=== PATIENT | female | born 1945 | race Caucasian/White ===

== ENCOUNTER 2021-01-20 09:36 | Emergency (ER) | payer MEDICARE, SELFPAY ==
[2021-01-20] VITALS (12 sets, daily range): BP systolic 132–152; BP diastolic 73–86; PULSE 80–111; RESP 12–22; TEMP 36.7; O2SAT 99–100
--- NOTE | ~2021-01-20 | XR_ITS ---
EXAMINATION: XR chest 2V DATE: 01/20/2021 10:41 INDICATION: Shortness of breath, palpitations and generalized weakness. TECHNIQUE: PA and lateral views of the chest were obtained. COMPARISON: Chest radiograph dated 10/27/[address] dated 01/26/2019 FINDINGS: The lungs are clear with no focal airspace opacities, pulmonary edema, pleural effusion or pneumothor ax. The cardiomediastinal silhouette is normal. Mild thoracic dextroscoliosis . Mild thoracic and mod erate lower cervical and upper lumbar spondylosis. IMPRESSION: 1. No acute cardiopulmonary disease. Reviewed, dictated and finalized at location B.
--- NOTE | 2021-01-20 09:45 | ECG_ITS ---
Measurements Intervals [place] Rate: 112 P: MA: 0 QRS: 8 QRSD: 74 T: 57 QT: 307 QTc: 420 Interpretive Statements SINUS TACHYCARDIA FREQUENT ATRIAL PREMATURE COMPLEXES LOW QRS VOLTAGE IN DIFFUSE LEADS CANNOT RULE OUT SEPTAL INFARCT, AGE INDETERMINATE ABNORMAL ECG Electronically Signed On 01-20-2021 11:09:50 CDT by Simba Damico D.O.
--- NOTE | 2021-01-20 09:46 | PC.NURSE ---
radial pulse strong, irregular
[2021-01-20 10:00] LABS: Basophils Absolute Auto 0.1 K/mm3 (0.0-0.1); Basophils Percent Auto 0.6 % (0.2-1.2); Eosinophils Absolute Auto 0.1 K/mm3 (0-0.3); Eosinophils Percent Auto 1.2 % (0-4.4); Hematocrit 42.4 % (37.0-47.0); Immature Granulocyte Absolute 0.03 K/mm3 (0.00-0.031); Immature Granulocyte Percent A 0.3 % (0-0.5); Lymphocytes Absolute Auto 1.39 K/mm3 (0.9-3.2); Lymphocytes Percent Auto 16.2 % (18.3-44.2); Mean Corpuscular Hemoglobin 31.6 pg (26-34); Mean Corpuscular Volume 95.7 fl (80-100); Mean Platelet Volume 9.9 fl (7.4-10.4); Monocytes Absolute Auto 0.6 K/mm3 (0.1-0.6); Neutrophils Absolute Auto 6.4 K/mm3 (1.3-6.7); Neutrophils Percent Auto 74.7 % (45.5-73.1); Platelet Count Result 285 k/mm3 (150-375); Red Blood Count 4.43 M/mm3 (4.2-5.4); Red Cell Distribution Width 12.9 % (11.5-14.5); White Blood Count 8.6 K/mm3 (4.5-10.0)
[2021-01-20 10:08] LABS: INR 0.9; Prothrombin Time 12.5 Seconds (11.1-14.7)
[2021-01-20 10:12] LABS: Potassium 4.1 mmol/L (3.4-5.0)
[2021-01-20 10:14] LABS: Anion Gap 10 mmol/L (8-16); Blood Urea Nitrogen 16 mg/dL (7-17); Calcium 9.2 mg/dL (8.4-10.2); Carbon Dioxide 26 mmol/L (22-30); Chloride 102 mmol/L (98-107); Estimated CRCL calculation 43 ml/min; Estimated Glomerular Filt Rate > 60; Glucose 154 mg/dL (65-105); Sodium 138 mmol/L (137-145)
[2021-01-20 10:24] LABS: Troponin I < 0.012 ng/mL (0.000-0.034)
[2021-01-20 11:05] LABS: Add Urine Microscopic? YES; Appearance Urine Clear (Clear); Bacteria Urine Trace /hpf; Bilirubin Urine Negative (Negative); Blood Urine 1+ (Negative); Color Urine Yellow (Yellow); Glucose Urine UA Negative (Negative); Ketones Urine Negative (Negative); Leukocyte Esterase Ur Trace LEU/UL (Negative); Mucus Urine Rare /lpf; Nitrate Urine Negative (Negative); Protein Urine Negative (Negative); RBC Urine 0-2 /hpf (0-2); Renal Epithelial Cells Urine Rare /hpf (None Seen); Specific Grav Ur 1.008 (1.001-1.035); Squamous Epithelial Cell Urine Few /hpf (Few); Urobilinogen Urine Negative mg/dL (<2.0); WBC Urine 0-3 /hpf
[2021-01-20] MEDS: SODIUM CHLORIDE 0.9% IV 1,000 ML 999 ML IV CONT (11:13)
--- NOTE | 2021-01-20 12:48 | ED.ARRPALP ---
HPI - Arrhythmia/Palpitations General Chief Complaint: Arrhythmia/Palpitations Stated Complaint: fast heartbeat Time Seen by Provider: 01/20/21 11:00 History of Present Illness HPI narrative: Patient is a 75-year-old female who presents ER with feelings of her heart racing. Patient continues to feel like her heart is going fast. No history of A. fib or SVT or atrial flutter. She reports she was seen by her PCP earlier in the week for concerns for UTI. She has been taking ciprofloxacin. She also takes lisinopril for hypertension. Denies fevers or chills or sweats. No abdominal issues. She is chest pain-free. Patient reports she urinates quite frequently but has not been having burning urination. She also reports she has not been eating or drinking much. Related Data Home Medications Medication Instructions Recorded Confirmed ciprofloxacin HCl 500 mg PO BID 01/20/21 Allergies Allergy/AdvReac Type Severity Reaction Status Date / Time No Known Allergies Allergy Verified 01/20/21 11:24 Review of Systems Review of Systems: All systems reviewed & are unremarkable except as noted in HPI and below Constitutional: Constitutional: Denies chills, Denies fever(s) and Denies weakness ENT: Denies nasal congestion and Denies sore throat Cardiovascular: Cardiovascular: Denies chest pain, Reports rapid heart rate and Denies radiating jaw, neck or arm pain Respiratory: Respiratory: Denies cough, Denies dyspnea and Denies wheezing Gastrointestinal: Gastrointestinal: Denies abdominal pain, Denies diarrhea, Denies nausea and Denies vomiting Genitourinary: Genitourinary: Reports nocturia, Denies dysuria and Denies flank pain [facility] Past Medical History Medical History (Updated 01/20/21 @ 14:04 by Derrick Holloway MD) Hypertension Macular degeneration Personal history of nicotine dependence Family History Family History Father Hypertension Family history of malignant neoplasm of urinary bladder Mother Hypertension Family history of diabetes mellitus in first degree relative Family history of malignant neoplasm of uterus Grandparent Family history of heart disease in male family member before age 55 Other Family history of malignant neoplasm of breast in first degree relative Family history of malignant neoplasm of male breast Social History Social History Smoking status: Current every day smoker Tobacco type: cigarettes Alcohol intake: current Exam Narrative: Exam Narrative: GENERAL: Well-appearing, well-nourished, and in no acute distress. HEAD: Normocephalic, atraumatic. ENT: Mucous membranes moist. CHEST: Clear to auscultation. No respiratory distress. HEART: Tachycardic and regular. Normal peripheral pulses. ABDOMEN: Soft, nontender, nondistended. EXTREMITIES: Normal range of motion. No edema. SKIN: Warm, dry, no rash. NEURO: Alert and oriented x3. PSYCH: Normal mood and affect. Course Course Emergency Course: Informed of results. No evidence of arrhythmia. Discharge home. Vital Signs Vital signs: Vital Signs Temperature 98.0 F 01/20/21 09:38 Pulse Rate 108 H 01/20/21 09:38 Respiratory Rate 20 01/20/21 09:38 Blood Pressure 152/80 H 01/20/21 09:38 Pulse Oximetry 100 01/20/21 09:38 Temperature 98.0 F 01/20/21 10:53 Pulse Rate 87 01/20/21 12:01 Respiratory Rate 16 01/20/21 12:01 Blood Pressure 133/74 01/20/21 12:01 Pulse Oximetry 100 01/20/21 12:01 MDM - Arrhythmia/Palpitations Lab Data Result diagrams: 01/20/21 09:51 01/20/21 09:51 Labs: Lab Results 01/20/21 01/20/21 01/20/21 Range/Units 09:51 09:51 09:51 WBC 8.6 (4.5-10.0) K/mm3 RBC 4.43 (4.2-5.4) M/mm3 Hgb 14.0 (12.0-15.0) g/dL Hct 42.4 (37.0-47.0) % MCV 95.7 (80-100) fl MCH 31.6 (26-34) pg MCHC 33.0
[2021-01-20 12:59] LABS: Troponin I < 0.012 ng/mL (0.000-0.034)
== END 2021-01-20 14:20 | disposition home or self-care (01) ==
PROVIDERS: Emergency Provider Emergency Medicine; PCP Physician Assistant
DX: R00.2 Palpitations (principal); F17.210 Nicotine dependence, cigarettes, uncomplicated; I10 Essential (primary) hypertension; H35.30 Unspecified macular degeneration; R06.02 Shortness of breath; R94.31 Abnormal electrocardiogram [ECG] [EKG]
CPT/HCPCS: 36415; 71046; 80048; 81001; 84484; 85025; 85610; 85730; 93005; 96360; 99284; J7030

== ENCOUNTER 2023-05-31 11:43 | Emergency (ER) | payer MEDICARE, SELFPAY ==
[2023-05-31] VITALS (21 sets, daily range): BP systolic 119–139; BP diastolic 72–88; PULSE 70–92; RESP 13–30; TEMP 36.5; O2SAT 97–100
--- NOTE | ~2023-05-31 | XR_ITS ---
EXAMINATION: XR chest 2V DATE: 05/31/2023 13:12 INDICATION: Palpitations. TECHNIQUE: Frontal and lateral views of the chest were obtained. COMPARISON: Chest 2 views 01/20/2021 FINDINGS: There is mild scarring at the lung apices. No pleural effusion or pneumothorax. The heart s ize is normal. IMPRESSION: 1. Stable mild scarring at the lung apices. Reviewed, dictated and finalized at location A.
--- NOTE | ~2023-05-31 | CT_ITS ---
EXAMINATION: CT brain wo con DATE: 05/31/2023 15:57 INDICATION: near syncope, vision changes . TECHNIQUE: Computed tomography (CT) of the head was performed without intravenous contrast. The mA wa s adjusted according to patient size. Iterative reconstruction technique was employed. The dose-lengt h product was 605.33 mGy-cm. COMPARISON: None. FINDINGS: No acute intracranial hemorrhage or extra-axial fluid collection. No hydrocephalus, mass, or herniation. No acute ischemic infarct. Unremarkable dural venous sinus attenuation. No acute osseous abnormality. The aerated spaces are clear. Mild atrophy and chronic white matter change. Atherosclerotic intracranial calcification. IMPRESSION: No acute intracranial process. Reviewed, dictated and finalized at location K.
--- NOTE | 2023-05-31 11:46 | ECG_ITS ---
Measurements Intervals [place] Rate: 91 P: 80 PA: 143 QRS: 32 QRSD: 78 T: 64 QT: 346 QTc: 426 Interpretive Statements SINUS RHYTHM RIGHT ATRIAL ENLARGEMENT [0.25mV P WAVE] INDETERMINATE AXIS LOW QRS VOLTAGE IN PRECORDIAL LEADS [QRS DEFLECTION < 1.0 mV IN CHEST LEADS] CANNOT RULE OUT sEPTAL MYOCARDIAL INFARCTION , PROBABLY OLD [ COMPARED TO ECG 01/20/2021 09:42:01 THERE IS NO SIGNIFICANT CHANGE Electronically Signed On 05-31-2023 17:03:59 CDT by [place] Mathias M.D.
[2023-05-31 12:06] LABS: Basophils Absolute Auto 0.1 K/mm3 (0.0-0.1); Basophils Percent Auto 0.6 % (0.2-1.2); Eosinophils Percent Auto 0.4 % (0-4.4); Hematocrit 43.2 % (37.0-47.0); Hemoglobin 14.3 g/dL (12.0-15.0); Immature Granulocyte Absolute 0.03 K/mm3 (0.00-0.031); Immature Granulocyte Percent A 0.3 % (0-0.5); Lymphocytes Percent Auto 14.5 % (18.3-44.2); Mean Corpuscular HGB Conc 33.1 g/dl (32-36); Mean Corpuscular Hemoglobin 31.9 pg (26-34); Mean Corpuscular Volume 96.4 fl (80-100); Mean Platelet Volume 10.2 fl (7.4-10.4); Monocytes Absolute Auto 0.9 K/mm3 (0.1-0.6); Monocytes Percent Auto 8.5 % (2.6-8.5); Neutrophils Absolute Auto 7.9 K/mm3 (1.3-6.7); Neutrophils Percent Auto 75.7 % (45.5-73.1); Platelet Count Result 270 k/mm3 (150-375); Red Blood Count 4.48 M/mm3 (4.2-5.4); White Blood Count 10.4 K/mm3 (4.5-10.0)
[2023-05-31 12:17] LABS: INR 0.9; Prothrombin Time 12.5 Seconds (11.1-14.7)
[2023-05-31 12:18] LABS: Partial Thromboplastin Time 27.6 SECONDS (22.3-36.8)
[2023-05-31 12:19] LABS: Alanine Aminotransferase 19 U/L (6-35); Albumin Level 4.3 g/dL (3.5-5.1); Alkaline Phosphatase 66 U/L (38-126); Anion Gap 4 mmol/L (8-16); Aspartate Amino Transferase 22 U/L (14-36); Bilirubin,Total 0.4 mg/dL (0.2-1.3); Blood Urea Nitrogen 11 mg/dL (7-17); Calcium 10.4 mg/dL (8.4-10.2); Carbon Dioxide 27 mmol/L (22-30); Chloride 102 mmol/L (98-107); Estimated CRCL calculation 40 ml/min; Estimated Glomerular Filt Rate > 60; Glucose 91 mg/dL (65-110); Lipase 73 U/L (23-300); Potassium 4.2 mmol/L (3.4-5.0); Sodium 133 mmol/L (137-145)
[2023-05-31 12:49] LABS: Troponin I < 0.012 ng/mL (0.000-0.034)
--- NOTE | 2023-05-31 13:48 | PC.NURSE ---
pt reports that she thinks she as dx with afib in the past however it went away, Cardiology states i wouldn't call this afib .
[2023-05-31] MEDS: ASPIRIN 81 MG CHEWABLE TABLET 324 MG PO (13:57)
--- NOTE | 2023-05-31 13:58 | ED.GENADULT ---
HPI - General Adult General Chief complaint: Arrhythmia/Palpitations Stated complaint: palp/cp/sob Time Seen by Provider: 05/31/23 13:44 Source: patient Mode of arrival: ambulatory Limitations: no limitations History of Present Illness HPI narrative: This is a 77-year-old female who presents to the ED with multiple complaints. She seems to indicate that her chief complaint is palpitations as this has been going on intermittently for the past couple of weeks. She has other complaints shortness of breath, hair loss, fatigue, lightheadedness, feeling off balance, diaphoresis that have all been going on for the past several months to a year. She states as I interview her that she is not having any more palpitations. She denies any chest pain. Denies shortness of breath currently. At this moment she is largely symptom-free. Denies fevers, chills, leg swelling, abdominal pain, nausea, vomiting. Related Data Home Medications Medication Instructions Recorded Confirmed ascorbate calcium (vitamin C) 500 500 mg PO DAILY 06/29/22 06/30/22 mg tablet calcium carbonate 600 mg-vitamin cap PO DAILY 06/29/22 06/30/22 D3 12.5 mcg (500 unit) capsule (Calcium 600 with Vitamin D3) multivitamin 1 tablet PO DAILY 06/29/22 06/30/22 Allergies Allergy/AdvReac Type Severity Reaction Status Date / Time escitalopram AdvReac Mild Mouth sores Verified 06/29/22 13:32 Review of Systems Review of Systems: All systems as dictated in HPI [facility] Past Medical History Medical History (Updated 05/31/23 @ 17:20 by Diallo Rasmussen PA-C) Hypertension Macular degeneration Personal history of nicotine dependence Family History Family History Father Hypertension Family history of malignant neoplasm of urinary bladder Mother Hypertension Family history of diabetes mellitus in first degree relative Family history of malignant neoplasm of uterus Grandparent Family history of heart disease in male family member before age 55 Other Family history of malignant neoplasm of breast in first degree relative Family history of malignant neoplasm of male breast Social History Social History Smoking packs per day: 1 Smoking cigarettes per day: 20.0 Years smoked: 55 Smoking pack-years: 55.00 Smoking status: Current every day smoker Tobacco type: cigarettes Alcohol intake: current Exam Narrative: GENERAL: Well-appearing, well-nourished, and in no acute distress. HEAD: Normocephalic, atraumatic. EYES: PERRLA and EOMI. ENT: Nares clear, no rhinorrhea or epistaxis. Mucous membranes moist. Oropharynx without tonsillar hypertrophy exudate or other lesions. NECK: Supple. No adenopathy or masses. CHEST: No respiratory distress. Clear to auscultation. No wheezes rales or rhonchi. HEART: Regular rate and rhythm. No murmur heard. Normal peripheral pulses. ABDOMEN: Soft, nontender, nondistended, normal active bowel sounds. MSK: Normal range of motion. No edema. SKIN: Warm, dry, no rash. NEURO: Alert and oriented x3. No focal deficits. PSYCH: Normal mood and affect. Course Vital Signs Vital signs: Vital Signs Temperature 97.7 F 05/31/23 12:05 Pulse Rate 91 05/31/23 12:05 Respiratory Rate 16 05/31/23 12:05 Blood Pressure 128/72 05/31/23 12:05 Pulse Oximetry 100 05/31/23 12:05 Oxygen Delivery Room Air 05/31/23 12:05 Temperature 97.7 F 05/31/23 12:05 Pulse Rate 84 05/31/23 16:46 Respiratory Rate 22 H 05/31/23 16:46 Blood Pressure 128/78 05/31/23 16:16 Pulse Oximetry 98 05/31/23 16:46 Oxygen Delivery Room Air 05/31/23 12:05 Medical Decision Making [facility] Narrative Medical decision making narrative: This is a 77-year-old female who presents to the ED with chief complaint of palpitations among multiple other complaints. Vitals are normal. EKG shows a sinus rh
[2023-05-31 15:12] LABS: Troponin I < 0.012 ng/mL (0.000-0.034)
--- NOTE | 2023-05-31 15:31 | ECG_ITS ---
Measurements Intervals [place] Rate: 79 P: 67 NV: 154 QRS: -11 QRSD: 80 T: 41 QT: 373 QTc: 428 Interpretive Statements SINUS RHYTHM LEFT ATRIAL ENLARGEMENT [-0.15mV P WAVE IN V1/V2] LOW QRS VOLTAGE IN PRECORDIAL LEADS [QRS DEFLECTION < 1.0 mV IN CHEST LEADS] COMPARED TO ECG 05/31/2023 11:51:33 NO SIGNIFICANT CHANGES Electronically Signed On 06-01-2023 14:30:57 CDT by López Le M.D.
--- NOTE | 2023-05-31 16:10 | PC.NURSE ---
Called to lab, spoke with Jean Claude, made aware of TSH. will add on.
--- NOTE | 2023-05-31 16:47 | PC.NURSE ---
Ambulated pt with walking O2 machine. Pt HR 90-103, oxygen at 96, pt denies SOB, CP, palpitations, lightheadedness during ambulation.
[2023-05-31 16:51] LABS: Thyroid Stimulating Hormone 0.109 uIU/mL (0.465-4.680)
== END 2023-05-31 17:35 | disposition home or self-care (01) ==
PROVIDERS: Emergency Medicine; Emergency Provider Physician Assistant; PCP Physician Assistant
DX: R94.6 Abnormal results of thyroid function studies (principal); R06.02 Shortness of breath; I10 Essential (primary) hypertension; H35.30 Unspecified macular degeneration; F17.210 Nicotine dependence, cigarettes, uncomplicated; R94.31 Abnormal electrocardiogram [ECG] [EKG]
CPT/HCPCS: 36415; 70450; 71046; 80053; 83690; 84443; 84484; 85025; 85610; 85730; 93005; 99284; A9270

== ENCOUNTER 2024-10-28 10:19 | Outpatient (CLI) | payer MEDICARE, SELFPAY ==
--- NOTE | ~2024-10-28 | MR_ITS ---
MRI of the brain Clinical History: Gait abnormality Technique: Axial and sagittal T1-weighted images were acquired. These were followed by axial T2-weigh masha, diffusion weighted, gradient, and FLAIR images. Thin cut axial and coronal T1-weighted and T2-we ighted images were acquired through the internal auditory canals. Findings: There is no acute infarct, intracranial hemorrhage, or mass lesion. There are mild to moder ate chronic white matter changes in the periventricular white matter bilaterally, most compatible wit h chronic microvascular ischemic change. Ventricles and subarachnoid spaces are unremarkable. Orbits are unremarkable. Paranasal sinuses and m astoid air cells are essentially clear. Major intracranial flow voids appear intact. Sagittal midline structures are intact. No abnormal mass lesion seen at the internal auditory canals or CP angle regions. IMPRESSION: Mild to moderate chronic microvascular ischemic change, otherwise unremarkable exam. Reviewed, dictated and finalized at location . [employer]
== END 2024-10-28 10:20 | disposition home or self-care (01) ==
LOC: MICIMG 10:21
PROVIDERS: PCP Physician Assistant; Visit Provider Nurse Practitioner
DX: I67.82 Cerebral ischemia (principal)
CPT/HCPCS: 70551

== ENCOUNTER 2025-03-22 10:12 | Outpatient (CLI) | payer MEDICARE, SELFPAY ==
--- NOTE | 2025-03-22 11:00 | NEURO_ITS ---
EMG and nerve conductions studies on lower limbs History: The patient is 79-year-old with history of imbalance and tendency to fall. She is being evaluated for neuromuscular disorders affecting lower limbs. On a brief examination no focal muscle wasting or fasciculations or muscle weakness were noted in the lower limbs. Results of the study are as follows. Summary of findings 1. Left and right tibial and peroneal motor distal latencies amplitude and conduction velocity within normal limits. 2. Left and right sural and right medial plantar sensory distal latencies amplitudes were within acceptable normal limits in 3. Bilateral H-reflex latencies and amplitudes were within acceptable normal limits. 4. EMG examination performed were various muscles in L3-S1 distribution and related paraspinal muscles were examined. No denervation changes were seen. Motor unit amplitude, duration and recruitment pattern appeared within acceptable normal limits. Impression: EMG and nerve conduction study of both lower limbs are considered within acceptable normal limits. Danita Marroquin MD, FAAN, FAANEM Neurology & electrodiagnostic Medicine Nerve Conduction Studies Motor Nerve Results ? Latency Amplitude F-Lat Segment Distance CV Comment Site (ms) (mV) (ms) (cm) (m/s) Left Peroneal (EDB) Motor Ankle 3.4 4.6 Bel Fib Head 9.0 4.0 Bel Fib Head-Ankle 260 46 Pop Fossa 10.2 4.0 Pop Fossa-Bel Fib Head 70 58 Right Peroneal (EDB) Motor Ankle 4.1 3.7 Bel Fib Head 9.0 3.3 Bel Fib Head-Ankle 250 51 Pop Fossa 10.5 3.2 Pop Fossa-Bel Fib Head 80 53 Left Tibial (AHB) Motor Ankle 3.6 11.8 Knee 11.2 10.4 Knee-Ankle 370 49 Right Tibial (AHB) Motor Ankle 4.6 11.0 Knee 12.3 10.5 Knee-Ankle 370 48 Sensory Nerve Results ? Latency (Peak) Amplitude (P-P) Segment Distance CV Comment Site (ms) (?V) (cm) (m/s) Right Medial Plantar (Ortho) Sensory Great Toe-Med Mall 2.4 29 Great Toe-Med Mall 100 42 Left Sural Sensory Calf-Lat Mall 3.1 27 Calf-Lat Mall 120 39 Right Sural Sensory Calf-Lat Mall 3.1 18 Calf-Lat Mall 120 39 H-Reflex Results ? M-Lat H Lat H Peak-Peak Amp M Peak-Peak Amp H-M Lat Site (ms) (ms) mV mV (ms) Left Tibial H-Reflex Pop Fossa - 27.1 6.4 - - Right Tibial H-Reflex Pop Fossa - 26.0 7.3 - - Electromyography ?Side Muscle Nerve Ins Act Fibs Psw Amp Dur Recrt Comment Right BicepsFemS Sciatic Nml Nml Nml Nml Nml Nml Right Semimembranosus Sciatic Nml Nml Nml Nml Nml Nml Right AntTibialis Dp Br Fibular Nml Nml Nml Nml Nml Nml Right Gastroc Tibial Nml Nml Nml Nml Nml Nml Right VastusMed Femoral Nml Nml Nml Nml Nml Nml Left BicepsFemS Sciatic Nml Nml Nml Nml Nml Nml Left Semimembranosus Sciatic Nml Nml Nml Nml Nml Nml Left AntTibialis Dp Br Fibular Nml Nml Nml Nml Nml Nml Left Gastroc Tibial Nml Nml Nml Nml Nml Nml Left VastusMed Femoral Nml Nml Nml Nml Nml Nml Left L4 Parasp Rami Nml Nml Nml Nml Nml Nml Right L5 Parasp Rami Nml Nml Nml Nml Nml Nml Left L5 Parasp Rami Nml Nml Nml Nml Nml Nml Right L4 Parasp Rami Nml Nml Nml Nml Nml Nml
--- OUTSIDE RECORDS SUMMARY | 2025-03-22 11:10 | XMS_ITS | Data Portability ---
Author Organization [facility] Madeline Address [address] [place] [address] [place] [address] Assessment Encounter Date Assessment Date Assessment LastModified by Organization Details LastModified Time 01/14/2021 01/14/2021 Annual gynecological exam performed. Patient will come back in a year unless there are new symptoms. Not available 01/14/2021 11:30:33 Plan of Treatment Reminders Order Date Submit Date Provider Last Modified By Organization Details Last Modified Time Details Appointments None recorded. Lab urinalysis , dipstick 2020 [address], [address], [place], [address], 11:31:47 Referral None recorded. Procedures None recorded. Surgeries None recorded. Imaging None recorded. Medication Orders Cipro 500 mg tablet 2020 [id number], [address], [place], [place], [id number], 11:57:30 Patient TargetsNo targets recorded. Patient InstructionsNo instructions recorded. Reason for Referral None Reported. Results Created Date Observation Date Name Description Value Unit Range Abnormal Flag Note LastModifiedBy Organization Detail LastModifiedTime 01/15/2001/14/2021 cultu re, urine result report SEE RESULT S BELOW Test: Cultu re: Urine Speci men Sourc e: Urine Voide d Speci men Type: Urine Speci men Date: 2020 11:57 AM Resul t Date: 4/1/2 021 6:01 AM Resul t Statu s: Final resul t Abnor mal: No Resul ting Lab: [facility] [address] [facility] [address] Tel: CULTU RE ----- ----- ----- --- No growt h in 1 day (dete ction level of 10,00 0 colon ies / ml.) Not Available [facility] (Lab) [address], [place], [address], 01/16/2021 07:03:36 01/15/20 21 01/14/2021 pap, IG Pap test SEE RESULT S BELOW CASE REPOR T: Cytol ogy Gynec ologi marquis Repor t Case: [id number] Autho stephaniecarissa g Provi rony: Duek To MD Colle cted: 01/14 1159 Order ing Locat ion: [place] Patho logy Recei robin: 01/15 0958 First Scree n: Orquidea wiggins, Donovan simpson, CT Speci men: Scree ilya Pap - Image d, Cervi x STATE MENT OF ADEQU ACY: Satis facto ry for evalu ation Trans forma tion zone compo nent prese nt FINAL DIAGN OSIS: Negat elsa for Squam ous Intra epith elial Lesio n Trino rubio gibran d by Donovan Stanford am, CT on 021 at 8:32 AM ----- ----- ----- ----- ----- ----- ----- ----- ----- ----- ----- ----- ----- ----- ----- ----- ----- ---- HPV RESUL TS: HPV mRNA E6/E7 : No HPV mRNA Detec masha NOTE: This high risk HPV mRNA assay detec ts fourt een high- risk HPV types (16, 18, 31, 33, 35, 39, 45, 51, 52, 56, 58, 59, 66, 68) witho ut diffe renti ation . CHART ABLE COMME NT: Note: This speci men was revie wed by a Cytot echno logis t and/o r Patho logis t (as indic ated in this repor t) after evalu ation using the Thinp rep Imagi ng Syste m. CLINI MARQUIS INFOR MATIO N: Menst rual Statu s: LMP (if appli cable ): Clini marquis Histo ry/Pr eviou s Pap: Type of Neopl korin (if appli cable ): Other Histo ry: Hormo keyshawn (if appli cable ): PAP EDUCA OZ L NOTE: The Pap Test is a scree ilya test with an inher ent false negat elsa rate. Liqui d-bas e sampl ing may decre ase, but will not elimi kristin, false negat lesa resul ts. A negat elsa resul t does not precl ude the prese nce and/o r devel opmen t of disea se, since the prese nce of abnor mal cells in the sampl e depen ds on the locat ion of the lesio n and sampl ing techn ique. Yesenia nued regul ar scree ilya is the best metho d of cance r preve ntion . If repor masha cytol ogic findi ng do not corre late with physi marquis and/o r histo rical findi ngs, furth er inves tigat ion is recom nilay d, as clini nicolas chavez nted. Not Available [facility] (Lab) [address], [place], [address], 01/16/2021 11:54:23 01/15/20 21 01/14/2021 urina lysis , dipst ick Leukocytes +2 Not Available [facility] [address], [place], [address], 01/14/2021 11:31:02 01/15/20 21 01/14/2021 urina lysis , dipst ick Blood ++ Not Available [place] [address], [place], [address], 01/14/2021 11:31:02 02/20/20 21 02/19/2021 urina lysis , compl ete color, urine Yellow colorl ess, light yellow , yellow , dark yellow , straw Not Available [facility] (Lab) [address], [place], [address], 02/21/2021 12:43:40 02/20/20 21 02/19/2021 urina lysis , compl ete clarity, urine Slight ly Cloudy Not Available [facility] (Lab) [address], [place], [address], 02/21/2021 12:43:40 02/20/20 21 02/19/2021 urina lysis , compl ete glucose, urine Negati ve mg/dL negati ve Not Available [facility] (Lab) [address], [place], [address], 02/21/2021 12:43:40 02/20/20 21 02/19/2021 urina lysis , compl ete bilirubin, urine Negati ve mg/dL negati ve Not Available [facility] (Lab) [address], [place], [address], 02/21/2021 12:43:40 02/20/20 21 02/19/2021 urina lysis , compl ete ketones, urine Negati ve mg/dL negati ve Not Available [facility] (Lab) [address] [place], [address], 02/21/2021 12:43:40 02/20/20 21 02/19/2021 urina lysis , compl ete pH, urine 7.0 . 5.0-9. 0 Not Available [facility] (Lab) [address] [place], [address], 02/21/2021 12:43:40 02/20/20 21 02/19/2021 urina lysis , compl ete specific gravity, urine 1.004 . 1.001- 1.035 Not Available [facility] (Lab) [address], [place], [address], 02/21/2021 12:43:40 02/20/20 21 02/19/2021 urina lysis , compl ete blood, urine Small negati ve abnormal Not Available [facility] (Lab) [address], [place], [address], 02/21/2021 12:43:40 02/20/20 21 02/19/2021 urina lysis , compl ete protein, urine Negati ve mg/dL negati ve Not Available [facility] (Lab) [address], [place], [address], 02/21/2021 12:43:40 02/20/20 21 02/19/2021 urina lysis , compl ete urobilinogen , urine <2.0 mg/dL <2.0 Not Available [facility] (Lab) [address], [place], [address], 02/21/2021 12:43:40 02/20/20 21 02/19/2021 urina lysis , compl ete nitrite, urine Negati ve negati ve Not Available [facility] (Lab) [address], [place], [address], 02/21/2021 12:43:40 02/20/20 21 02/19/2021 urina lysis , compl ete leukocyte esterase, urine Modera te negati ve abnormal Not Available [facility] (Lab) [address], [place], [address], 02/21/2021 12:43:40 02/20/20 21 02/19/2021 urina lysis , compl ete WBC, urine 10-14 /hpf none, 0-5 abnormal Not Available [facility] (Lab) [address] [place], [address], 02/21/2021 12:43:40 02/20/20 21 02/19/2021 urina lysis , compl ete RBC, urine 0-2 /hpf none, 0-2 Not Available [facility] (Lab) [address], [place], [address], 02/21/2021 12:43:40 02/20/20 21 02/19/2021 urina lysis , compl ete bacteria, urine Few /hpf none abnormal Not Available [facility] (Lab) [address], [place], [address], 02/21/2021 12:43:40 02/20/20 21 02/19/2021 urina lysis , compl ete squamous epithelial cells, urine Modera te /hpf none abnormal Not Available [facility] (Lab) [address], [place], [address], 02/21/2021 12:43:40 02/20/20 21 02/19/2021 urina lysis , compl ete non-squamous epi, urine Few /hpf none abnormal Not Available [facility] (Lab) [address], [place], [address], 02/21/2021 12:43:40 02/20/20 21 02/19/2021 urina lysis , compl ete mucus, urine Trace /hpf none, trace, few Not Available [facility] (Lab) [address] [place], [address], 02/21/2021 12:43:40 02/20/20 21 02/19/2021 cultu re, urine result report SEE RESULT S BELOW Test: Cultu re: Urine Speci men Sourc e: Urine Voide d Speci men Type: Urine Speci men Date: 2:24 PM Resul t Date: 11:42 AM Resul t Statu s: Final resul t Abnor mal: No Resul ting Lab: [facility] [address] [facility] [address] [address] Tel: CULTU RE ----- ----- ----- --- Cultu re resul t (>=3 organ isms prese nt) indic ates possi ble conta minat ion. Repea t cultu re if sympt oms indic ate. Not Available [facility] (Lab) [address], [place], [address], 02/21/2021 12:43:41 Result Notes None recorded. Procedures Surgical History Date Name Laterality Status Provider Name and Address Organization Details Recorded Time 03/18/20 15 Date of Last Pap Smear completed [facility] 01/14/2021 10:59:51 03/18/20 15 laparoscopic bilateral salpingo-oophorec dionicio completed [facility] 01/14/2021 11:07:[address] [facility] 01/14/2021 11:32:41 Laser surgery of cervix completed [facility] 01/14/2021 11:33:58 Imaging Results None recorded. Procedure Notes None recorded. Medical Equipment None Reported. Medications Name Sig Start Date Stop Date Status Note LastModified by Organization Details LastModified Time ciprofloxac in 500 mg tablet TAKE 1 TABLET BY MOUTH EVERY 12 HOURS active Not Available Not Available No t Available prednisolon e acetate 1 % eye drops,suspe nsion 01/14 completed Not Available Not Available Not Available lisinopril 40 mg tablet TAKE 1 TABLET BY MOUTH DAILY active Not Available Not Available No t Available escitalopra m 10 mg tablet TAKE 1 TABLET BY MOUTH DAILY active Not Available Not Available No t Available moxifloxaci n 0.5 % eye drops INSTILL 1 DROP IN OPERATIV EYE TID. START 2 DAYS PRIOR TO SURGERY. 01/14 completed Not Available Not Available Not Available nitrofurant oin monohydrate /macrocryst als 100 mg capsule TK 1 C PO Q 12 H FOR 7 DAYS WITH FOOD 01/14 completed Not Available Not Available Not Available Vitals Date Recorded Body height Body mass index (BMI) Body weight Systolic blood pressure Diastolic blood pressure Provider Name and Address Organization Details Last Updated DateTime 01/14/2021 152.4 cm 23.6 kg/m2 76684.68 g 137 mm[Hg] 79 mm[Hg] Roro Mujica [facility] 11:18:49 Social History Question Answer Notes LastModified by Organizat ion Details LastModified Time Tobacco Smoking Status Current Every Day Smoker Roro crews [facility] 01/14/2021 11:06:50 How Much Tobacco Do You Smoke? 1 PPD Information not available 01/14/2021 How Many Years Have You Smoked Tobacco? 55 Information not available 01/14/2021 Sex: Unknown Functional Status None recorded. Mental Status None recorded. Family History Relationship Description Onset Age of this Age Resolved Age Notes LastModified by Organization Details LastModified Time Mother Malignant tumor of breast Not available 2020 11:04:52 Mother Diabetes mellitus Not available 2020 11:05:04 Mother Hypertensive disorder Not available 2020 11:05:47 Mother Malignant neoplasm of uterus Not available 2020 11:06:07 Maternal Grandmother Malignant tumor of breast Not available 2020 11:04:52 Maternal Grandmother Diabetes mellitus Not available 2020 11:05:04 Father Hyperlipidem ia Not available 2020 11:05:27 Father Hypertensive disorder Not available 2020 11:05:47 Medical History Condition Response Other Y Hypertension Y Gynecological History Statement/Question Response Abnormal Pap Y Date of Last Pap Smear 03/18/2015 Current Control Method 15 Obstetrics History GPAL:G 0 P 0 0 0 0 Past Encounters Encounter ID Performer Location Encounter Start Date Encounter Closed Date Diagnosis/Indication Diagnosis SNOMED-CT Code Diagnosis ICD10 Code Diagnosis Note [id number] Justice oT MD Madeline [address] [address] 01/14/2021 10:44:26 01/14/2021 15:47:20 Urinary tract infectious disease 58497997 N39.0 Gynecologi c examination 47383374 Z01.419 This patient is here for her annual exam. A thorough history was taken. A physical exam was performed. Age appropriat e routine health screening was ordered, performed, and discussed. Recommende d testing was ordered. She was asked to follow up in one year. She will be informed of any test results. Mammogram - [ordered ] Colonoscop y - [declined ] Bone Density - [ declined] Cholestero l - [ done] Pap - today Additional precaution vandana measures were taken to minimize potential exposure to the Covid-19 virus during this patient s visit, including available hand studio operation engineer upon arrive, temperatur e check and being asked a series of screening questions. All staff wore face coverings during this encounter, as well as provided additional cleaning and sanitizing of all surfaces, including countertop s, pens, chairs, door handles, light switches, etc, prior to and following the patient s visit. Health Concerns Section Related Observation LastModified by Organization Detai ls LastModified Time None Recorded Concern Status LastModified by Organization Details LastModified Time None Recorded Advance Directives Directive None Recorded Payers Encounter Date Sequence Insurance Name Policy Number Policy Yoder Covered Member ID Yoder Member ID Guarantor Name 01/14/2021 2 [place] [id number] Bere Ely [id number] Bere Ely 01/14/2021 1 [place] Bere Ely [id number] Bere Ely Notes Date Note Type Note Provider Name and Address Organization Details Recorded Time 01/14/2021 text/html Annual GYNReported bypatient.Urinary symptoms:Hematuri a;Increased urinary frequency Vulva:Painless genital lesion Vagina:Normal vaginal discharge Breast:No breast pain; No breast lump; No nipple discharge Psychological symptoms:No depression; No anxiety Preventive measures:Encourag e self breast examination; Encourage regular exercise Justice To MD [address], [place], [address], [facility] 01/14/2021 12:37:34 OBGyn Episode No OBEpisode recorded.
--- OUTSIDE RECORDS SUMMARY | 2025-03-22 11:10 | XMS_ITS | Clinical Summary ---
Author Organization [facility] Address [address] [place] [address] Care Team Providers Care Caramel Cutter Machine Name Role Phone Maximino Daigle MD Primary Care Provider [phone] Source Comments [facility],non-owned Affiliates and Associated Physician Practices is amultiple site organization consisting of ambulatory clinics and hospital sitesin [place], [place], [place] and [place]. This disclosure is being madepursuant to the Care Everywhere program and may not contain all information available regarding this patient. 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 Gender Identity Not on file Sexual Orientation Not on file Plan of Treatment Health Maintenance Due Date Last Done Comments BONE DENSITY TESTING 1945 HEPATITIS C SCREENING 07/19/1965 DTAP/TDAP/TD VACCINES (1 - Tdap) 1966 PNEUMOCOCCAL VACCINE 50+ (1 of 1 - PCV) 1997 ZOSTER VACCINE (1 of 2) 1997 Respiratory Syncytial Virus (RSV) Vaccine Pt: or over 60 yrs (1 - 1-dose 75+ series) 2022 COVID-19 VACCINE ( - 2023-2 5 season) 2024 DEPRESSION SCREENING 10/18/2024 INFLUENZA VACCINE (Season Ended) 2025 HEPATITIS B VACCINE Aged Out No longe r eligible based on patient's age to complete this topic HIB VACCINE Aged Out No longer eligi ble based on patient's age to complete this topic HPV VACCINE Aged Out No longer eligi ble based on patient's age to complete this topic MENINGOCOCCAL (Group B) VACC INE SHARED DECISION-MAKING Aged Out No longer eligibl e based on patient's age to complete this topic MENINGOCOCCAL GROUPS A/C/Y/W VACCINE Aged Out No longer eligible b ased on patient's age to [place] [address] MEDICARE [employer] Care Teams Caramel Cutter Machine Relationship Specialty Start Date End Date Maximino Daigle MD [address] [place] [address] PCP - General 01/11/20
--- OUTSIDE RECORDS SUMMARY | 2025-03-22 11:10 | XMS_ITS | Encounter Summary ---
Author Organization [facility] Address [address] [place] [address] Care Team Providers Care Cuprous Chloride Helper Name Role Phone Maximino Daigle MD Primary Care Provider [phone] Encounter Details Date Type Department Care Team (Late st Contact Info) Description 01/11/2020 Lab Requisition 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 Received: 01/11/2020 02:40 PM Pathologist: Jesus Morin MD Specimen: Skin, right arm 0 1:33 PM CDT DERMATOPATHOLOGY LABORATORY Final Diagnosis Specimen A. SKIN, right arm: DERMAL SCAR RESIDUAL SQUAMOUS CELL CARCINOMA NOT IDENTIFIED (L90.5) 0 1:33 PM CDT DERMATOPATHOLOGY LABORATORY at 1333 CDT Clinical History #[id number] 0 1:33 PM CDT DERMATOPATHOLOGY LABORATORY Gross Description Specimen A: Received is one formalin filled container labeled with the patient's name and designated right arm. The specimen consists of a non-oriented ellipse of skin measuring [id number]. The epidermal surface is unremarkable. The margin is inked green. The 12 o'clock and 6 o'clock tips are submitted in cassette 1. The remainder of the ellipse is serially sectioned and submitted in cassette 2-3. Jar 0. 0 1:33 PM CDT DERMATOPATHOLOGY LABORATORY Microscopic Description Specimen A. SKIN, right arm: There are fibroblasts and collagen bundles oriented parallel to the skin surface. There are elongated blood vessels, some of which are oriented perpendicular to the skin surface. No residual squamous cell carcinoma is identified. 0 1:33 PM CDT DERMATOPATHOLOGY LABORATORY Disclaimer An external and internal positive and negative controls are appropriate for the histochemical, immunohistochemical and immunofluorescence stain(s) in this case (if any), except where stated explicitly. The performance characteristics of the stain(s) cited in this report were developed and its performance characteristic determined by the Dermatopathology Laboratory at [facility], directed by Dr. Noel Morin. These tests need not be, and therefore are not, approved by the [place] Food and Drug Administration. The tests are used for clinical purposes. Billing Codes Specimen Charges Stain Charges 78905 1 0 1:33 PM CDT DERMATOPATHOLOGY LABORATORY Embedded Images 0 1:33 PM CDT DERMATOPATHOLOGY LABORATORY Pathology/Cytolog y TISSUE SPECIMEN FROM SKIN / Unknown 01/10/2020 01/11/2020 2:40 PM CDT us Oliverio Urias MD LAB - PATHOLOGY/CYTOLOGY ORDER JOHN Final Result DERMATOPATHOLOGY LABORATORY [facility] - Department of Dermatology [address] [place] [address], 5th Floor Lab [address] [phone] documented in this encounter Visit Diagnoses Not on filedocumented in this encounter Care Teams Cuprous Chloride Helper Relationship Specialty Start Date End Date Maximino Daigle MD [address] [facility] [address] [place] [address] PCP - General 01/11/20 documented as of this encounter
--- OUTSIDE RECORDS SUMMARY | 2025-03-22 11:10 | XMS_ITS | Referral Summary ---
Author Organization [facility] [place] [place] [facility] Address [address] [place] [address] Care Team Providers Care Coffee Grower Name Role Phone Storm Cortez Primary Care Provider Allergies No known active allergies Medications amLODIPine (NORVASC) 5 mg tablet Take 1 tablet (5 mg total) by mouth daily 02/21/2024 Active busPIRone (BUSPAR) 7.5 mg tablet Take 1 tablet (7.5 mg total) by mouth 2 (two) times a day 03/21/2024 Active nitrofurantoin monohydrate (MACROBID) 100 mg capsule TAKE 1 CAPSULE BY MOUTH EVERY 12 HOURS FOR 7 DAYS 06/06/2024 Active Active Problems Problem Noted Date Diagnosed Date Closed fracture of right proximal humerus 2023 Social History Tobacco Use Types Packs/Day Years Used Date Smoking Tobacco: Unknown Tobacco Cessation:Counseling Given: Not Answered Comments Unknown Sex and Gender Information Value Date Recorded Sex Assigned at Not on file Legal Sex Female 12:58 PM CDT Gender Identity Not on file Sexual Orientation Not on file Last Filed Vital Signs Vital Sign Reading Time Taken Comments Blood Pressure - - Pulse - - Temperature - - Respiratory Rate - - Oxygen Saturation - - Inhaled Oxygen Concentration - - Weight 54.4 kg (120 lb) 03/28/2024 9:46 AM CDT Height 154.9 cm (5' 1) 03/28/2024 9:46 AM CDT Body Mass Index 22.67 03/28/2024 9:46 AM CDT Plan of Treatment Not on file Insurance MEDICARE BLUE [employer]OSS MEDICARE SUPPLEMENT [facility] Advance Directives For more information, please contact: [phone] Documents on File Type Date Recorded Patient Adjudication Specialist Expl anation ADVANCE DIRECTIVE 03/28/2024 9:02 AM POWER OF SEGMENTAL WALL INSTALLER Care Teams Coffee Grower Relationship Specialty Start Date End Date Storm Cortez PA [address] [facility] [address] [place], [place] [phone] PCP - General Physician Furniture Upholsterer Apprentice 03/20/24
--- OUTSIDE RECORDS SUMMARY | 2025-03-22 11:10 | XMS_ITS | Clinical Summary ---
Author Organization [facility] Address [address] [place] [address] Care Team Providers Care Site Acquisition Manager Name Role Phone Storm Cortez Primary Care [...] on file Sexual Orientation Not on file Obstetrics History Last Filed Vital Signs Vital Sign Reading Time Taken Comments Blood Pressure - - Pulse - - Temperature - - Respiratory Rate - - Oxygen Saturation - - Inhaled Oxygen Concentration - - Weight 54.4 kg (120 lb) 03/28/2024 9:46 AM CDT Height 154.9 cm (5' 1) 03/28/2024 9:46 AM CDT Body Mass Index 22.67 03/28/2024 9:46 AM CDT Plan of Treatment Health Maintenance Due Date Last Done Comments Depression Screening 1945 Fall Risk Assessment 1945 Hepatitis C Screening 1945 Osteoporosis Screening-Bone Density Scan 1945 DTaP/Tdap/Td Vaccine (1 - Tdap) 1958 Hepatitis B Screening 1965 Zoster Vaccine (1 of 2) 1997 Well Visit 65+ 2012 Covid-19 Vaccine (7 - 2023-2 5 season) 2024 10/22/2023, 09/16/2022, 02/06/2022, Additional history exists Influenza Vaccine (Season Ended) 2025 10/22/2023, 09/16/2022, 09/05/2021, Additional history exists Pneumococcal vaccine 65+ Completed 015, 10/31/2014, 10/20/2014 Insurance MEDICARE [facility] MEDICARE SUPPLEMENT MEDICARE PENDING SALE TO [facility] Advance Directives For more information, please contact: [phone] Documents on File Type Date Recorded Patient Law Researcher Expl anation ADVANCE DIRECTIVE 03/28/2024 9:02 AM POWER OF SUPERVISOR SOAKERS Care Teams Site Acquisition Manager Relationship Specialty Start Date End Date Storm Cortez PA [address] [facility] [address] [place] [address] PCP - General Physician Dev Technical Mgr 03/20/24
== END 2025-03-22 10:13 | disposition home or self-care (01) ==
LOC: ANHNEURO 10:13
PROVIDERS: PCP Nurse Practitioner; Visit Provider Psychiatry & Neurology Neurology
DX: E11.9 Type 2 diabetes mellitus without complications (principal); G62.9 Polyneuropathy, unspecified
CPT/HCPCS: 95886; 95910

== ENCOUNTER 2025-06-07 15:32 | Outpatient (CLI) | payer MEDICARE, SELFPAY ==
--- OUTSIDE RECORDS SUMMARY | 2025-06-07 15:35 | XMS_ITS | Clinical Summary ---
Author Organization [facility] Address [address] [place] [address] Care Team Providers Care Retail Sales Lead Name Role Phone Maximino Daigle MD Primary Care Provider [phone] Source Comments [facility],non-owned Affiliates and Associated Physician Practices is amultiple site organization consisting of ambulatory clinics and hospital sitesin [place], [place], [place] and [place]. This disclosure is being madepursuant to the Care Everywhere program and may not contain all information available regarding this patient. 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
--- OUTSIDE RECORDS SUMMARY | 2025-06-07 15:35 | XMS_ITS | Encounter Summary ---
Author Organization [facility] Address [address] [facility] [place] [address] Care Team Providers Care Blackjack Dealer Name Role Phone Maximino Daigle MD Primary Care Provider [phone] Encounter Details Date Type Department Care Team (Late st Contact Info) Description 01/11/2020 Lab Requisition [facility] [address] [place] [address] Oliverio Urias MD [address] [place] [address] Social History Tobacco Use Types Packs/Day Years Used Date Smoking Tobacco: Never Assessed Comments Unknown Sex and Gender Information Value Date Recorded Sex Assigned at Not on file Legal Sex Female 6:14 AM 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 Gender Identity Not on file Sexual Orientation Not on file documented as of this encounter Plan of Treatment Not on file documented as of this encounter Procedures Procedure Name Priority Date/Time Associated Diagnosis Comments DERMATOPATHOLOGY Routine 01/10/2020 12:0 0 AM CDT documented in this encounter Results * DERMATOPATHOLOGY (01/10/2020 12:00 AM CDT) Case Report Dermatopathology Report Case: [id number] Authorizing Provider: Oliverio Urias MD Collected: 01/10/2020 12:00 AM Ordering Location: [facility] Received: 01/11/2020 02:40 PM Pathologist: Jesus Morin MD Specimen: Skin, right arm 0 1:33 PM CDT DERMATOPATHOLOGY LABORATORY Final Diagnosis Specimen A. SKIN, right arm: DERMAL SCAR RESIDUAL SQUAMOUS CELL CARCINOMA NOT IDENTIFIED (L90.5) 0 1:33 PM CDT DERMATOPATHOLOGY LABORATORY at 1333 CDT Clinical History #[id number] 0 1:33 PM CDT DERMATOPATHOLOGY LABORATORY Gross Description Specimen A: Received is one formalin filled container labeled with the patient's name and designated right arm. The specimen consists of a non-oriented ellipse of skin measuring [id number]. The epidermal surface is unremarkable. The margin [...] characteristic determined by the Dermatopathology Laboratory at [facility], directed by Dr. Noel Morin. These tests need not be, and therefore are not, approved by the [place] Food and Drug Administration. The tests are used for clinical purposes. Billing Codes Specimen Charges Stain Charges 99942 1 0 1:33 PM CDT DERMATOPATHOLOGY LABORATORY Embedded Images 0 1:33 PM CDT DERMATOPATHOLOGY LABORATORY Pathology/Cytolog y TISSUE SPECIMEN FROM SKIN / Unknown 01/10/2020 01/11/2020 2:40 PM CDT us Oliverio Urias MD LAB - PATHOLOGY/CYTOLOGY ORDER JOHN Final Result DERMATOPATHOLOGY LABORATORY [facility] - Department of Dermatology [address] [place] [address], 5th Floor Lab [address] [phone] documented in this encounter Visit Diagnoses Not on filedocumented in this encounter Care Teams Blackjack Dealer Relationship Specialty Start Date End Date Maximino Daigle MD [address] [facility] [address] [facility] [address] [place] [address] PCP - General 01/11/20 documented as of this encounter
--- OUTSIDE RECORDS SUMMARY | 2025-06-07 15:35 | XMS_ITS | Clinical Summary ---
Author Organization [facility] Address [address] [place] [id number] Care Team Providers Care Agriculture Internship Name Role Phone Storm Cortez Primary Care [...] 09/16/2022, 02/06/2022, Additional history exists Influenza Vaccine (#1) 2025 , 09/16/2022, 09/05/2021, Additional history exists Pneumococcal vaccine 65+ Completed 015, 10/31/2014, 10/20/2014 Insurance MEDICARE [facility] MEDICARE SUPPLEMENT MEDICARE [facility] Advance Directives For more information, please contact: [phone] Documents on File Type Date Recorded Patient Pinion Sorter Expl anation ADVANCE DIRECTIVE 03/28/2024 9:02 AM POWER OF MANAGER SEARCH Care Teams Agriculture Internship Relationship Specialty Start Date End Date Storm Cortez PA [address] [facility] [address] [place] [address] PCP - General Physician Rehabilitation Attendant 03/20/24
--- NOTE | 2025-06-07 15:41 | ECHO_ITS ---
Patient Info Name: Bere Ely Age: 79 years : 1945 Gender: Female Ht: 61 in Wt: 118 lbs BSA: 1.52 m2 HR: 93 bpm BP: 136 / 90 mmHg Technical Quality: Good Exam Date: 06/07/2025 3:53 PM Patient Status: O Admit Date: 06/07/2025 Exam Type: CA echo doppler color flow Complete two-dimensional, color flow and Doppler transthoracic echocardiogram is performed. Swinging Cut Off Saw Operator: Alta Gamez Attending Provider: Dimitrios Fisher Summary 1. Complete two-dimensional, color flow and Doppler transthoracic echocardiogram is performed. 2. Left ventricular chamber dimension is normal. 3. Left ventricular systolic function is normal, estimated at 55-60. 4. The left ventricular diastolic function is grade I diastolic dysfunction. 5. E/e' 7 is not elevated. 6. There is trace aortic valve regurgitation. 7. There is trace mitral valve regurgitation. 8. There is mild tricuspid valve regurgitation. 9. No pulmonary hypertension, estimated pulmonary arterial systolic pressure is 31 mmHg. Left Ventricle E/e' 7 is not elevated. Left ventricular chamber dimension is normal. Left ventricular systolic function is normal, estimated at 55-60. The left ventricular diastolic function is grade I diastolic dysfunction. Right Ventricle Right ventricular chamber dimension is normal. Right ventricular systolic function is normal and with normal TAPSE 2.1 cm. Left Atria Left atrial chamber dimension is normal. Right Atria Right atrial chamber dimension is normal. Aortic Valve The aortic valve is probable trileaflet. There is no aortic valve stenosis. There is trace aortic valve regurgitation. Pulmonic Valve There is no pulmonic regurgitation. Mitral Valve There is no mitral valve stenosis. There is trace mitral valve regurgitation. Tricuspid Valve There is mild tricuspid valve regurgitation. No pulmonary hypertension, estimated pulmonary arterial systolic pressure is 31 mmHg. Pericardium/Pleural There is no pericardial effusion. Inferior Vena Cava Normal inferior vena cava with >50% collapse upon inspiration consistent with normal right atrial pressure, 5 mmHg. Aorta The aortic root size at the sinus of Valsalva is normal. Left Ventricular Outflow Tract Name Value Normal LVOT 2D LVOT Diameter 1.8 cm LVOT Doppler LVOT Peak Velocity 124 cm/s LVOT Peak Gradient 6 mmHg LVOT Mean Gradient 3 mmHg LVOT VTI 24 cm LVOT VTI/AV VTI Ratio 0.8 LVOT Stroke Volume 61 ml LVOT CO 12.6 l/min LVOT CI 8.2 l/min/m2 Pulmonic Valve Name Value Normal PV Doppler PV Peak Velocity 84 cm/s PV Peak Gradient 3 mmHg Mitral Valve Name Value Normal MV Diastolic Function MV E Peak Velocity 75 cm/s MV A Peak Velocity 115 cm/s MV E/A 0.6 MV Decel Time (PW) 213 ms MV Annular TDI MV E/e' (Septal) 9.1 MV E/e' (Lateral) 7.0 MV E/e' (Average) 8.1 Tricuspid Valve Name Value Normal TV Regurgitation Doppler TR Peak Velocity 254 cm/s TR Peak Gradient 26 mmHg Estimated PAP/RSVP RA Pressure 5 mmHg <=5 PA Systolic Pressure 31 mmHg <36 RV Systolic Pressure 31 mmHg <36 TV Annular TDI TV Lateral Mayte s' Velocity 16.8 cm/s >=9.5 Aorta Name Value Normal Ascending Aorta Ao Root Diameter (MM) 2.9 cm Ao Root Diam Index (MM) 1.9 cm/m2 Aortic Valve Name Value Normal AV Doppler AV Peak Velocity 159 cm/s AV Peak Gradient 10 mmHg AV Mean Gradient 6 mmHg AV VTI 29 cm AV Area (Cont Eq VTI) 2.1 cm2 >=3.0 AV Area (Cont Eq Jet) 2.0 cm2 AV DI (Jet) 0.78 AV Regurgitation 2D LVOT Area 2.6 cm2 Ventricles Name Value Normal LV Dimensions 2D/MM IVS Diastolic Thickness (2D) 1.0 cm 0.6-1.0 LVID Diastole (2D) 3.7 cm 3.8-5.2 LVIW Diastolic Thickness (2D) 0.9 cm 0.6-0.9 LVID Systole (2D) 2.5 cm 2.2-3.5 LVOT Diameter 1.8 cm LV Mass (2D Cubed) 106.15 g 67.00-162.00 LV Mass Index (2D Cubed) 70 g/m2 43-95 Relative Wall Thickness (2D) 0.51 <=0.42 LV Fractional Shortening/Ejection Fraction 2D/MM LV Fractional Shortening (2D) 34 % 27-45 LV EF (2D Teichholz) 63 % LV Diastolic Volume (4C MOD) 64 ml LV EF (4C MOD) 56 % LV Diastolic Volume (2C MOD) 65 ml LV EF (2C MOD) 62 % LV Diastolic Volume (BP MOD) 64 ml 46-106 LV Diastolic Volume Index (BP MOD) 42 ml/m2 29-61 LV Systolic Volume (BP MOD) 27 ml 14-42 LV Systolic Volume Index (BP MOD) 17 ml/m2 8-24 LV EF (BP MOD) 59 % 54-74 LV Diastolic Length (4C) 6.7 cm LV Systolic Length (4C) 5.5 cm LV Stroke Volume (4C MOD) 35 ml RV Dimensions 2D/MM RVID Diastole (2D) 2.7 cm 2.1-3.5 Atria Name Value Normal LA Dimensions LA Dimension (MM) 2.4 cm 2.7-3.8 LA Volume (4C A-L) 23 ml LA Volume (BP A-L) 23 ml RA Dimensions RA Systolic Major Cuddy Length (4C) 3.9 cm 2.2-2.8 RA Area (4C) 9.1 cm2 <=18.0 Report Signatures
== END 2025-06-07 15:33 | disposition home or self-care (01) ==
PROVIDERS: PCP Nurse Practitioner; Visit Provider Nurse Practitioner
DX: R01.1 Cardiac murmur, unspecified (principal); I36.1 Nonrheumatic tricuspid (valve) insufficiency
CPT/HCPCS: 93306

== ENCOUNTER 2025-09-17 13:14 | Outpatient (CLI) | payer MEDICARE, SELFPAY ==
--- NOTE | ~2025-09-17 | MR_ITS ---
EXAMINATION: MR cervical spine wo con DATE: 09/17/2025 13:45 INDICATION: Ataxia TECHNIQUE: Magnetic resonance imaging (MRI) of the cervical spine was performed without intravenous contrast. Sequences included sagittal T2-weighted FSE, sagittal T2-weighted FS FSE, sagittal T1-weighted FSE, axial MERGE and axial T2- weighted FSE. COMPARISON: None FINDINGS: 15 degrees lower cervical levocurvature. 1-2 mm anterolisthesis C3 on C4 and 1-2 mm retrolisthesis C5 on C6. Vertebral body heights are normal. Bone marrow signal intensity is normal. Moderate to severe disc height loss at C4-C5, C5-C6 and C6-C7. Severe left-sided predominant disc height loss at T2-T3. Mild disc height loss at C3-C4, C7-T1, T3-T4 and T4-T5. Cord signal intensity is normal. Status post right thyroidectomy. Subtle subcentimeter left thyroid nodule. Cervical soft tissues are otherwise unremarkable. The following disc levels are specifically discussed: C2-C3: Annular fissure and small central disc protrusion. There is mild bilateral uncovertebral joint osteoarthritis. There is mild bilateral facet joint osteoarthritis. There is minimal neural foraminal stenosis. There is no central canal stenosis. C3-C4: Disc is minimally bulging. There is mild left and moderate right uncovertebral joint osteoarthritis. There is mild right and moderate left facet joint osteoarthritis. There is mild bilateral neural foraminal stenosis. There is minimal central canal stenosis. C4-C5: Disc is mildly bulging. There is moderate left and severe right uncovertebral joint osteoarthritis. There is mild bilateral facet joint osteoarthritis. There is mild left and moderate right neural foraminal stenosis. There is mild central canal stenosis with mild flattening the right ventral saran face of the cord. C5-C6: Disc is bulging. There is severe bilateral uncovertebral joint osteoarthritis. There is mild bilateral facet joint osteoarthritis. There is mild to moderate left and moderate right neural foraminal stenosis. There is mild central canal stenosis. Mild flattening the ventral surface of the cord C6-C7: Disc is bulging with annular fissure. There is severe bilateral uncovertebral joint osteoarthritis. There is mild bilateral facet joint osteoarthritis. There is moderate bilateral neural foraminal stenosis. There is mild central canal stenosis. C7-T1: Annular fissure and small left paracentral disc protrusion. There is mild bilateral uncovertebral joint osteoarthritis. There is mild bilateral facet joint osteoarthritis. There is no neural foraminal stenosis. There is minimal central canal stenosis. IMPRESSION: 1. 15 degrees lower cervical levocurvature with moderate to severe spondylosis. Reviewed, dictated and finalized at location A. MA EDUCATOR
--- NOTE | ~2025-09-17 | US_ITS ---
EXAMINATION: US carotid duplex BI DATE: 09/17/2025 14:30 INDICATION: Abnormal gait TECHNIQUE: Grayscale, color Doppler, and pulsed Doppler images of the cervical carotid arteries were obtained. The degree of vessel stenosis is placed in one of the following categories: normal, <50%, 50-69%, >=70% but less than near- occlusion, near-occlusion, or total occlusion. Note that percent stenosis relative to normal distal artery lumen diameter is indirectly measured from velocity measurements as described by Aquiles, et al. Radiology 2003; 229:340-346. Notes: Normal: Peak systolic velocity <125 centimeters/sec and no plaque <50%. Peak systolic velocity <125 (EDV <40; ICA/CCA PSV ratio <2.0; used these factors only a tandem lesions or low cardiac output or contralateral disease) 50-69 %: PSV 125-230 (EDV 40-100; ratio 2-4) >= 70% but less than near occlusion: PSV greater than 230 (EDV > 100; ratio> 4.0) Near Occlusion: PSV that is variable; markedly narrowed lumen Occlusion: Absent flow on color/spectral Doppler and no lumen on maldonado scale. COMPARISON: None. FINDINGS: RIGHT: The right common carotid artery (CCA) peak systolic velocity (PSV) is 72 cm/s. The right internal carotid artery (ICA) PSV is 77 cm/s. The right ICA end- diastolic velocity (EDV) is 17 cm/s. The right ICA/CCA PSV ratio is 1.1. The external carotid artery (ECA) PSV is 54 cm/s. There is antegrade flow in the right vertebral artery. LEFT: The left CCA PSV is 79 cm/s. The left ICA PSV is 102 cm/s. The left ICA EDV is 31 cm/s. The left ICA/CCA PSV ratio is 1.3. The ECA PSV is 52 cm/s. There is antegrade flow in the left vertebral artery. IMPRESSION: 1. Less than 50% stenosis in the right internal carotid artery by sonographic criteria. 2. Less than 50% stenosis in the left internal carotid artery by sonographic criteria. Reviewed, dictated and finalized at location I. RONMENTAL REMEDIATION SPECIALIST IMPRESSION: 1. Less than 50% stenosis in the right internal carotid artery by sonographic marcial merino. 2. Less than 50% stenosis in the left internal carotid artery by sonographic richmond robin.
--- OUTSIDE RECORDS SUMMARY | 2025-09-17 14:23 | XMS_ITS | Encounter Summary ---
Author Organization [facility] Address [address] [facility] [place] [address] Care Team Providers Care Stave Machine Tender Name Role Phone Maximino Daigle MD Primary Care Provider [phone] Encounter Details Date Type Department Care Team (Late st Contact Info) Description 01/11/2020 Lab Requisition [facility] [address] [facility] [place] [address] Oliverio Urias MD [address] [facility] [place] [address] Social History Tobacco Use Types Packs/Day Years Used Date Smoking Tobacco: Never Assessed Comments Unknown Sex and Gender Information Value Date Recorded Sex Assigned at Not on file Legal Sex Female 6:14 AM PRINTED 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 Gender Identity Not on file Sexual Orientation Not on file documented as of this encounter Plan of Treatment Not on file documented as of this encounter Procedures Procedure Name Priority Date/Time Associated Diagnosis Comments DERMATOPATHOLOGY Routine 01/10/2020 12:0 0 AM CDT documented in this encounter Results * DERMATOPATHOLOGY (01/10/2020 12:00 AM CDT) Case Report Dermatopathology Report Case: [id number] Authorizing Provider: Oliverio Urias MD Collected: 01/10/2020 12:00 AM Ordering Location: [facility] Received: 01/11/2020 02:40 PM Pathologist: Jesus Morin MD Specimen: Skin, right arm 0 1:33 PM CDT DERMATOPATHOLOGY LABORATORY Final Diagnosis Specimen A. SKIN, right arm: DERMAL SCAR RESIDUAL SQUAMOUS CELL CARCINOMA NOT IDENTIFIED (L90.5) 0 1:33 PM CDT DERMATOPATHOLOGY LABORATORY at 1333 CDT Clinical History #[id number] 0 1:33 PM CDT DERMATOPATHOLOGY LABORATORY Gross Description Specimen A: Received is one formalin filled container labeled with the patient's name and designated right arm. The specimen consists of a non-oriented ellipse of skin measuring [id number]. The epidermal surface is unremarkable. The margin [...] characteristic determined by the Dermatopathology Laboratory at [facility], directed by Dr. Noel Morin. These tests need not be, and therefore are not, approved by the [place] Food and Drug Administration. The tests are used for clinical purposes. Billing Codes Specimen Charges Stain Charges [id number] 1 0 1:33 PM CDT DERMATOPATHOLOGY LABORATORY Embedded Images 0 1:33 PM CDT DERMATOPATHOLOGY LABORATORY Pathology/Cytolog y TISSUE SPECIMEN FROM SKIN / Unknown 01/10/2020 01/11/2020 2:40 PM CDT us Oliverio Urias MD LAB - PATHOLOGY/CYTOLOGY ORDER JOHN Final Result DERMATOPATHOLOGY LABORATORY [facility] - Department of Dermatology [address] [place] [address], 5th Floor Lab [address] [phone] documented in this encounter Visit Diagnoses Not on filedocumented in this encounter Care Teams Stave Machine Tender Relationship Specialty Start Date End Date Maximino Daigle MD [address] [facility] [address] [facility] [address] [place] [address] PCP - General 01/11/20 documented as of this encounter
--- OUTSIDE RECORDS SUMMARY | 2025-09-17 14:23 | XMS_ITS | Clinical Summary ---
Author Organization [facility] Address [address] [place] [phone] Care Team Providers Care Oracle Soa Consultant Name Role Phone Storm Cortez Primary Care [...] Well Visit 65+ 2012 Covid-19 Vaccine (7 2024-2 6 season) 2025 10/22/2023, 09/16/2022, 02/06/2022, Additional history exists Influenza Vaccine (#1) 2025 , 09/16/2022, 09/05/2021, Additional history exists Pneumococcal vaccine 65+ Completed 015, 10/31/2014, 10/20/2014 Insurance MEDICARE [facility] MEDICARE SUPPLEMENT MEDICARE [facility] Advance Directives For more information, please contact: [phone] Documents on File Type Date Recorded Patient Magazine Worker Expl anation ADVANCE DIRECTIVE 03/28/2024 9:02 AM POWER OF ENGINEER BYPRODUCT Care Teams Oracle Soa Consultant Relationship Specialty Start Date End Date Storm Cortez PA [address] [facility] [address] [place] [address] PCP - General Physician Technical Account Representative 03/20/24
--- OUTSIDE RECORDS SUMMARY | 2025-09-17 14:23 | XMS_ITS | Clinical Summary ---
Author Organization [facility] Address [address] [facility] [place] [address] Care Team Providers Care Environmental Service Aide Name Role Phone Maximino Daigle MD Primary Care Provider [phone] Source Comments [facility],non-owned Affiliates and Associated Physician Practices is amultiple site organization consisting of ambulatory clinics and hospital sitesin [place], [place], [place] and [place]. This disclosure is being madepursuant to the Care Everywhere program and may not contain all information available regarding this patient. 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
--- OUTSIDE RECORDS SUMMARY | 2025-09-17 14:23 | XMS_ITS | Data Portability ---
Author Organization [facility] [place] Address [address] [place] [address] [place] [address] Assessment Encounter Date Assessment Date Assessment LastModified by Organization Details LastModified Time 01/14/2021 01/14/2021 Annual gynecological exam performed. Patient will come back in a year unless there are new symptoms. Not available 01/14/2021 11:30:33 Plan of Treatment Reminders Order Date Submit Date Provider Last Modified By Organization Details Last Modified Time Details Appointments None recorded. Lab urinalysis , dipstick 2020 [address] [place], [address], [place], [address], 11:31:47 Referral None recorded. Procedures None recorded. Surgeries None recorded. Imaging None recorded. Medication Orders Cipro 500 mg tablet 2020 [id number], [address] [facility], [place], [place], [id number], 11:57:30 Patient TargetsNo targets recorded. Patient InstructionsNo [...] Date: 2020 11:57 AM Resul t Date: 6:01 AM Resul t Statu s: Final resul t Abnor mal: No Resul ting Lab: [facility] [address] [facility] [address] Tel: CULTU RE ----- ----- ----- --- No growt h in 1 day (dete ction level of 10,00 0 colon ies / ml.) Not Available [facility] (Lab) [address] [facility], [place], [address], 01/16/2021 07:03:36 01/15/20 21 01/14/2021 pap, IG Pap test SEE RESULT S BELOW CASE REPOR T: Cytol ogy Gynec ologi marquis Repor t Case: [id number] Autho brian garrido Provi rony: [facility] To MD Colle cted: 01/14 1159 Order ing Locat ion: [place] Patho logy Recei robin: 01/15 0958 First Scree n: Donovan Stanford am, CT Speci men: Scree ilya Pap - Image d, Cervi x STATE MENT OF ADEQU ACY: Satis facto ry for evalu ation Trans forma tion zone compo nent prese nt FINAL DIAGN OSIS: Negat elsa for Squam ous Intra epith elial Lesio n Elect rocco rubio gibran d by Donovan Stanford am, [...] but will not elimi kristin, false negat elsa resul ts. A negat elsa resul t [...] as clini nicolas chavez nted. Not Available [facility] (Lab) [address], [place], [address], 01/16/2021 11:54:23 01/15/20 21 01/14/2021 urina lysis , dipst ick Leukocytes +2 Not Available Katya hernandez [address], [place], [address], 01/14/2021 11:31:02 01/15/20 21 01/14/2021 urina lysis , dipst ick Blood ++ Not Available [place] [address], [place], [address], 01/14/2021 11:31:02 02/20/20 21 02/19/2021 urina lysis , compl ete color, urine Yellow colorl ess, light yellow , yellow , dark yellow , straw Not Available [facility] (Lab) [address] [facility], [place], [address], 02/21/2021 12:43:40 02/20/20 21 02/19/2021 urina lysis , compl ete clarity, urine Slight ly Cloudy Not Available [facility] (Lab) [address] [facility], [place], [address], 02/21/2021 12:43:40 02/20/20 21 02/19/2021 urina lysis , compl ete glucose, urine Negati ve mg/dL negati ve Not Available [facility] (Lab) [address] [facility], [place], [address], 02/21/2021 12:43:40 02/20/20 21 02/19/2021 urina lysis , compl ete bilirubin, urine Negati ve mg/dL negati ve Not Available [facility] (Lab) [address] [facility], [place], [address], 02/21/2021 12:43:40 02/20/20 21 02/19/2021 urina lysis , compl ete ketones, urine Negati ve mg/dL negati ve Not Available [facility] (Lab) [address] [place], [address], 02/21/2021 12:43:40 02/20/20 21 02/19/2021 urina lysis , compl ete pH, urine 7.0 . 5.0-9. 0 Not Available [facility] (Lab) [address] [place], [address], 02/21/2021 12:43:40 02/20/20 21 02/19/2021 urina lysis , compl ete specific gravity, urine 1.004 . 1.001- 1.035 Not Available [facility] (Lab) [address] [facility], [place], [address], 02/21/2021 12:43:40 02/20/20 21 02/19/2021 urina lysis , compl ete blood, urine Small negati ve abnormal Not Available [facility] (Lab) [address] [facility], [place], [address], 02/21/2021 12:43:40 02/20/20 21 02/19/2021 urina lysis , compl ete protein, urine Negati ve mg/dL negati ve Not Available [facility] (Lab) [address] [facility], [place], [address], 02/21/2021 12:43:40 02/20/20 21 02/19/2021 urina lysis , compl ete urobilinogen , urine <2.0 mg/dL <2.[address] [facility] (Lab) [address] [facility], [place], [address], 02/21/2021 12:43:40 02/20/20 21 02/19/2021 urina lysis , compl ete nitrite, urine Negati ve negati ve Not Available [facility] (Lab) [address] [facility], [place], [address], 02/21/2021 12:43:40 02/20/20 21 02/19/2021 urina lysis , compl ete leukocyte esterase, urine Modera te negati ve abnormal Not Available [facility] (Lab) [address] [facility], [place], [address], 02/21/2021 12:43:40 02/20/20 21 02/19/2021 urina lysis , compl ete WBC, urine 10-14 /hpf none, 0-5 abnormal Not Available [facility] (Lab) [address] [place], [address], 02/21/2021 12:43:40 02/20/20 21 02/19/2021 urina lysis , compl ete RBC, urine 0-2 /hpf none, 0-2 Not Available [facility] (Lab) [address] [facility], [place], [address], 02/21/2021 12:43:40 02/20/20 21 02/19/2021 urina lysis , compl ete bacteria, urine Few /hpf none abnormal Not Available [facility] (Lab) [address] [facility], [place], [address], 02/21/2021 12:43:40 02/20/20 21 02/19/2021 urina lysis , compl ete squamous epithelial cells, urine Modera te /hpf none abnormal Not Available [facility] (Lab) [address] [facility], [place], [address], 02/21/2021 12:43:40 02/20/20 21 02/19/2021 urina lysis , compl ete non-squamous epi, urine Few /hpf none abnormal Not Available [facility] (Lab) [address] [facility], [place], [address], 02/21/2021 12:43:40 02/20/20 21 02/19/2021 urina lysis , compl ete mucus, urine Trace /hpf none, trace, few Not Available [facility] (Lab) [address] [facility], [place], [address], 02/21/2021 12:43:40 02/20/20 21 02/19/2021 cultu re, urine result report SEE RESULT S BELOW Test: Cultu re: Urine Speci men Sourc e: Urine Voide d Speci men Type: Urine Speci men Date: 2:24 PM Resul t Date: 11:42 AM Resul t Statu s: Final resul t Abnor mal: No Resul ting Lab: [facility] [address] [facility] [address] Tel: CULTU RE ----- ----- ----- --- Cultu re resul t (>=3 organ isms prese nt) indic ates possi ble conta minat ion. Repea t cultu re if sympt oms indic ate. Not Available [facility] (Lab) [address], [place], [address], 02/21/2021 12:43:41 Result Notes None recorded. Procedures Surgical History Date Name Laterality Status Provider Name and Address Organization Details Recorded Time 03/18/20 15 Date of Last Pap Smear completed [facility] 01/14/2021 10:59:51 03/18/20 15 laparoscopic bilateral salpingo-oophorec dionicio completed [facility] 01/14/2021 11:07:17 Tonsillectomy completed [facility] 01/14/2021 11:32:41 Laser surgery of cervix completed [facility] 01/14/2021 11:33:58 Imaging Results None recorded. [...] Body mass index (BMI) Body weight Systolic And Diastolic Provider Name and Address Organization Details Last Updated DateTime 01/14/2021 152.4 cm 23.6 kg/m2 91080.68 g 137/79 mm[Hg] Roro Mujica [facility] 01/14/2021 11:18:49 Social History Question Answer Notes LastModified by Organizat ion Details LastModified Time Tobacco Smoking Status Current Every Day Smoker Roro crews [facility] 01/14/2021 11:06:50 How Much Tobacco Do You Smoke? 1 PPD Information not available 01/14/2021 How Many Years Have You Smoked Tobacco? 55 Information not available 01/14/2021 Sex: Unknown Functional Status None recorded. Mental Status None recorded. Family History Relationship Description Onset Age of this Age Resolved Age Notes LastModified by Organization Details LastModified Time Mother Malignant neoplasm of breast Not available 2020 11:04:52 Mother Diabetes mellitus Not available 2020 11:05:04 Mother Hypertensive disorder Not available 2020 11:05:47 Mother Malignant neoplasm of uterus Not available 2020 11:06:07 Maternal Grandmother Malignant neoplasm of breast Not available 2020 11:04:52 Maternal [...] Diagnosis SNOMED-CT Code Diagnosis ICD10 Code Diagnosis IMO Codes Diagnosis Note [id number] Justice To MD [place] [address] [address] 01/14/2021 10:44:26 01/14/2021 15:47:20 Urinary tract infectious disease 83352438 N39.0 Gynecologi c examination [id number] Z01.419 This patient is here for her [...] this patient s visit, including available hand director print upon arrive, temperatur e check and being [...] Recorded Advance Directives Directive None Recorded Payers Insurance Date Sequence Insurance Name Policy Number Policy Yoder Covered Member ID Yoder Member ID Guarantor Name 01/14/2021 2 [place] [id number] Bere Ely [id number] Bere Ely 01/15/2021 1 [place] Bere Ely [id number] Bere Ely Notes Date Note Type Note Provider Name and Address Organization Details Recorded Time 01/15/20 21 text/ht ml Annual GYNReported by PatientGenitourinary symptomsFor urinary symptoms, patient reportshematuriaandincreased urinary frequency. For vulva, patient reportspainless genital lesion. For vagina, patient reportsnormal vaginal discharge.Breast symptomsFor breast, patient reportsno breast pain,no breast lump, andno nipple discharge.Psychological symptomsFor psychological symptoms, patient reportsno depressionandno anxiety.Preventative measuresFor preventive measures, patient reportsencourage self breast examinationandencourage regular exercise. Justice To MD [address], [place], [address], [facility] 01/14/2021 12:37:34 OBGyn Episode No OBEpisode recorded.
== END 2025-09-17 13:15 | disposition home or self-care (01) ==
PROVIDERS: PCP Nurse Practitioner; Visit Provider Psychiatry & Neurology Neurology
DX: R27.0 Ataxia, unspecified (principal); I63.9 Cerebral infarction, unspecified; R29.6 Repeated falls; M47.892 Other spondylosis, cervical region; I65.23 Occlusion and stenosis of bilateral carotid arteries
CPT/HCPCS: 72141; 93880